=== PATIENT | female | born 1960 | race Caucasian/White ===

== ENCOUNTER 2024-07-14 13:15 | Outpatient (REF) | payer OTHER, SELFPAY ==
--- NOTE | ~2024-07-14 | XR_ITS ---
CLINICAL HISTORY: M54.50 - Low back pain, unspecified 4 views lumbar spine Comparison: None Findings: There is scoliotic curvature No acute fractures or dislocation. There is multiple level degenerative disc and facet change. IMPRESSION: No acute findings. This document has been electronically signed by: Carlos Eduardo Loja MD on 07/16/2024 08:49:25
--- OUTSIDE RECORDS SUMMARY | 2024-07-14 16:00 | XMS_ITS | Clinical Summary ---
Author Organization [facility] [place] [address] Care Team Providers Care Broomcorn Press Feeder Name Role Phone Kathryn Anderson MD Primary [...] Documents on File Type Date Recorded Patient Ged Tutor Expl anation Advance Directives and Livsarahi g Will 08/08/2010 9:49 AM Care Teams Broomcorn Press Feeder Relationship Specialty Start Date End Date Kathryn Anderson MD PCP - General 05/01/10
== END 2024-07-14 13:16 | disposition home or self-care (01) ==
LOC: HO.HOSX 13:15
PROVIDERS: Visit Provider Physician Assistant
DX: M51.16 Intervertebral disc disorders with radiculopathy, lumbar region (principal); M51.17 Intervertebral disc disorders with radiculopathy, lumbosacral region; M54.50 Low back pain, unspecified
CPT/HCPCS: 72110; 99202

== ENCOUNTER 2024-07-14 13:15 | Outpatient (AMB) | payer OTHER, SELFPAY ==
--- NOTE | 2024-07-14 13:23 | A.SPINEOV_ITS ---
Vital Signs 07/14/24 14:09 Height 5 ft 7 in Weight 160 lb BMI 25.1 Intake Visit Reasons: LBP Intake Note: Ms. Mcneil is here today c/o low back pain. Senior It Auditor Required: No Allergies oxycodone Allergy (Mild, Verified 07/14/24 14:10) Unknown Physical Exam Vital Signs: BMI result Body Mass Index 25.1 Assessment & Plan Assessment & Plan (1) Degenerative scoliosis: Code(s): M41.50 - Other secondary scoliosis, site unspecified Category: Medical Plan Dear Dr. Solano Thank you for referring Ayesha to our office today. she is a pleasant 64-year-old female who comes in today with a chief complaint low back pain and shooting pains into her left hip. She reports that this has been ongoing intermittently for the past 20 years. It has worsened over the course of the last 1-2 years. She states that 20 years ago she had an acute event when shoveling snow where she had a sharp pain in her low back leaving her unable to ambulate for 1-2 days. Ever since this event she has had waxing and waning flare-ups of pain. She rates her baseline daily pain as about a 4/10, with the occasional flare-ups all the way to 8/10. she states that transitioning from one position to the next (example: sitting to lying down) exacerbates her pain. She denies any known alleviating factors. She denies any numbness / tingling / burning associated with the pain. She feels that her low back pain is the worst when compared to the shooting pain into her left hip. When describing the shooting pain that goes into her left hip she grabs the left lower side of her back and runs it over the lateral aspect of her hip into the lateral thigh. She is not currently taking any medications for pain, but has tried vysr-nqh-byzkapt medications such as Tylenol and NSAIDs in the past. She has attempted physical therapy in an effort to help mitigate her pain. She has been to the chiropractor and attempted acupuncture in the past. She has had several different cortisone injections with our colleagues at [facility], citing up to 80% relief of pain after some of her injections. Unfortunately her pain seems to always return after a few weeks following her injections. PMH: History of melanoma in 1997 successfully cured, history of tonsillectomy, hysterectomy, left-sided carpal tunnel release, right-sided carpal tunnel syndrome, ADD, eczema, history of bilateral torn meniscus, hyperlipidemia, osteoarthritis. Social hx: Patient does not smoke, reports no substance use. Medications: Clobetasol, Xiidra, Addderall, Buspirone, floucinolone, Halobetsaol. Allergies: Oxycodone, Strattera, Vyvanse. Physical exam: Patient has 5/5 strength in her upper and lower extremities. she ambulates well and rises from seated position without difficulty. She has no significant sensational deficits on exam. Her reflexes are 2+ intact diffusely. (-) Huff's, (-) clonus, (-) bilateral straight leg raise. Imaging review: MRI of the lumbar spine completed at [facility] in May of 2024 shows degenerative dextroscoliosis with the apex at L3. This appear accentuated on the dynamic spine X-rays I obtained during this visit. There is a disc herniation at L4-5 causing effacement of the bilateral exiting nerve roots; right, worse than left. There is also posterior disc bulge at L3-4 causing severe right-sided foraminal stenosis, moderate -severe central canal stenosis, and mild left-sided foraminal stenosis. In addition to this there is moderate central canal and bilateral foraminal stenosis at L2-3, worse on the left. And lastly there is what I would call moderate left sided foraminal stenosis at L1-2. Impression: Ayesha is a pleasant 64-year-old female comes in today with a chief complaint of primarily low back pain with a component of left-sided radicular pain shooting into her left hip/thigh. This has been ongoing for the past 20 years since an initial inciting incident of what sounds like a disc herniation when shoveling snow. Over the course of the last 1-2 years her pain is significantly increased, especially with positional changes. when attempting to rise from seated position or lay down from sitting she feels exacerbations of her pain up to an 8/10. Her MRI shows stenosis of the foramen both on the right and the left in the lumbar spine. Due to her disclosure of increased pain with positional changes I believe the degenerative scoliosis seen may be contributing to her symptoms, however it is difficult to ignore the fact that she has right sided disc herniations that may be contributing to her pain. Therefore, I would like to obtain a record of the patient's injections at [facility] to ascertain which of the injections were able to give her up to 80% relief of her pain. If in fact the L2-3, L3-4 segment did give her pain relief this may point more towards the degenerative scoliosis being the causative agent. I would like to avoid a scoliosis correction in this patient if possible, and feel something like a lumbar decompression may be beneficial for her. I will review her imaging with the attending neurosurgeon Dr. Deleon and call the patient back for follow-up when I have her records Thank you for allowing us to care for your patient. The total time spent with this visit with this patient was 45 minutes reviewing history, physical exam, MRI imaging review, and implementation of treatment plan or further diagnostic testing Iam Deleon MD,PhD [facility] Orders: Orders XR lumbar spine 4V min Today M54.50 - Low back pain, unspecified NE electromyogram (EMG) Today M54.50 - Low back pain, unspecified Coding Level of Care Code New Pt Level 4 (62581) Diagnoses Degenerative scoliosis M41.50
[2024-07-14 14:09] VITALS: BMI 25.1
--- OUTSIDE RECORDS SUMMARY | 2024-07-14 14:38 | XMS_ITS | Clinical Summary ---
Author Organization [facility] [address] Care Team Providers Care Rental Boats Caretaker Name Role Phone Kathryn Anderson MD Primary Care Provider Allergies Active Allergy Reactions Criticality Noted Date Comments Cis Free Text Allergy Hayfever. Oxycodone Oxycodone-Acetaminophen Medications Medication Sig Dispensed Refills Start Date End Date Status CIS Free Text Med - bethamethasone dipropianate cream 02/25/2008 Active traZODone (DESYREL) 50 mg tablet 02/25/2008 Active betamethasone valerate (VALISONE) 0.1 % lotion 02/25/2008 Active fluocinonide-emollient 0.05 % Crea cream 02/25/2008 Active Social History Tobacco Use Types Packs/Day Years Used Date Smoking Tobacco: Never Assessed Sex and Gender Information Value Date Recorded Sex Assigned at Not on file Gender Identity Not on file Sexual Orientation Not on file Plan of Treatment Health Maintenance Due Date Last Done Comments CT Colonography 1961 Colonoscopy 1961 Colorectal Cancer Screening 1961 FIT DNA 1961 FIT 1961 Sigmoidoscopy (10 year) with FIT yearly 1961 Sigmoidoscopy 1961 HIV screen 1979 Hepatitis C Screening 1979 Tetanus/Diphtheria/Pertussis Vaccines (1 - Tdap) 03/15 HPV test 1991 PAP Smear 1991 Breast Cancer Share Decision Needed 2001 Breast Cancer screening 2001 Pneumoccocal Vaccine: 50+ (1 of 1 - PCV) 2011 Zoster vaccine (1 of 2) 2011 Advance Directive 2016 Covid-19 Vaccine (1 - 2023-25 season) 2024 Influenza (Flu) vaccine (1 o f 1 - Influenza standard series) 02/08/2024 Advance Directives Documents on File Type Date Recorded 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
== END 2024-07-14 16:19 | disposition home or self-care (01) ==
PROVIDERS: PCP Family Medicine; Referring Provider Physical Medicine & Rehabilitation; Visit Provider Physician Assistant
DX: M51.361 Other intervertebral disc degeneration, lumbar region with lower extremity pain only (principal); M41.50 Other secondary scoliosis, site unspecified
CPT/HCPCS: 99204

== ENCOUNTER → 2024-07-14 14:55 | Outpatient (BNV) | payer OTHER, SELFPAY | PROVIDERS: Visit Provider Specialist | DX: M54.50 Low back pain, unspecified (principal) | CPT/HCPCS: 72110 ==

== ENCOUNTER 2024-08-04 10:09 | Outpatient (REF) | payer OTHER, SELFPAY ==
--- NOTE | 2024-08-04 10:12 | EMG_ITS ---
Chief complaint: Lower back pain radiating to hips and posterior thigh, bilateral although left worse than right Reason for referral: Evaluate for radiculopathy Referred by: Iam SAGE Procedure done: Bilateral lower extremity NCS/EMG Precautions and/or limitations: None The limb temperature was monitored continuously and remained between 32-36 degrees C during the performance of the NCS. Nerve Conduction Studies Anti Sensory Summary Table ?Stim Site NR Onset (ms) Norm Onset (ms) Peak (ms) Norm Peak (ms) O-P Amp (?V) Norm O-P Amp Site1 Site2 Delta-0 (ms) Dist (cm) Alex (m/s) Norm Alex (m/s) Left Sural Anti Sensory (Lat Mall) Calf ? 3.1 3.8 <4.0 11.8 >5.0 Calf Lat Mall 3.1 14.0 45 Right Sural Anti Sensory (Lat Mall) Calf ? 2.6 3.7 <4.0 21.9 >5.0 Calf Lat Mall 2.6 14.0 54 Motor Summary Table ?Stim Site NR Onset (ms) Norm Onset (ms) O-P Amp (mV) Norm O-P Amp iAmp (mV) Amp (1st) (%) Site1 Site2 Delta-0 (ms) Dist (cm) Alex (m/s) Norm Alex (m/s) Right Peroneal Motor (Ext Dig Brev) Ankle ? 3.8 <4.0 5.2 >2.5 6.2 100.0 Ankle Ext Dig Brev 3.8 0.0 B Fib ? 10.1 4.9 5.3 94.2 B Fib Ankle 6.3 29.0 46 >40 Poplt ? 10.8 5.0 5.5 96.2 Poplt B Fib 0.7 5.0 71 >40 Left Tibial Motor (Abd Tran Brev) Ankle ? 4.0 <5 8.0 >2.5 12.0 100.0 Ankle Abd Tran Brev 4.0 0.0 Knee ? 11.0 6.1 8.5 76.3 Knee Ankle 7.0 36.0 51 >40 Right Tibial Motor (Abd Tran Brev) Ankle ? 3.5 <5 7.5 >2.5 10.4 100.0 Ankle Abd Tran Brev 3.5 0.0 Knee ? 11.3 6.2 8.9 82.7 Knee Ankle 7.8 36.0 46 >40 EMG ?Side Muscle Nerve Root Ins Act Fibs Psw Amp Dur Poly Recrt Int Pat Comment Right AbdHallucis MedPlantar S1-2 Incr 1+ 1+ Incr Incr 0 Nml Complete Right AntTibialis Dp Br Peron L4-5 Nml Nml Nml Nml Nml 0 Reduced Complete Right PostTibialis Tibial L5, S1 Nml Nml Nml Nml Nml 0 Nml Complete Right MedGastroc Tibial S1-2 Nml Nml Nml Nml Nml 0 Nml Complete Right VastusMed Femoral L2-4 Nml Nml Nml Nml Nml 0 Nml Complete Left AbdHallucis MedPlantar S1-2 Incr 1+ 1+ Nml Nml 0 Nml Complete Left AntTibialis Dp Br Peron L4-5 Incr 1+ 1+ Nml Nml 0 Nml Complete Left PostTibialis Tibial L5, S1 Nml Nml Nml Nml Nml 0 Nml Complete Left MedGastroc Tibial S1-2 Nml Nml Nml Nml Nml 0 Nml Complete Left VastusMed Femoral L2-4 Nml Nml Nml Nml Nml 0 Nml Complete Paraspinal EMG ?Side Muscle Nerve Root Ins Act Fibs Psw Comment Right Lumbar Upper Rami Nml Nml Nml Right Lumbar Mid Rami Incr 1+ 1+ Right Lumbar Lower Rami Incr 1+ 1+ Left Lumbar Upper Rami Nml Nml Nml Left Lumbar Mid Rami Nml Nml Nml Left Lumbar Lower Rami Nml Nml Nml FINDINGS: All motor and sensory nerves tested showed normal latencies, amplitudes and conduction velocities. Concentric needle EMG was performed in selected muscles of the bilateral lower extremity and lumbar paraspinals. Study revealed signs of electric abnormalities as shown in the table above. Right AH showed increased insertional activity, PSWs and fibrillations, and increased duration. Right tibialis anterior showed reduced recruitment. Left AH and tibialis anterior showed increased insertional activity, PSWs and fibrillations. Right mid lumbar paraspinals showed increased insertional activity, PSWs and fibrillations. IMPRESSION: 1. This is an abnormal study. 2. There is electrodiagnostic evidence for bilateral mid to lower lumbar radiculopathies, affecting L4/L5/S1 levels. Appearing acute on chronic on right side. 3. There is no electrodiagnostic evidence for peroneal neuropathy, tibial neuropathy. lumbosacral plexopathy, or peripheral neuropathy. Thank you for your kind referral. Mallory Gamez MD, TANYA Board Certified, [place] Board [employer] and Rehabilitation (ABPMR) Board Certified, [place] Board of Electrodiagnostic Medicine (ABEM) CODIN [id number] x 2 MTDD
--- OUTSIDE RECORDS SUMMARY | 2024-08-04 12:15 | XMS_ITS | Clinical Summary ---
Author Organization [place] [address] Care Team Providers Care Teleprinter Installer Name Role Phone Kathryn Anderson MD Primary Care Provider [phone] Allergies Active Allergy Reactions Criticality Noted Date [...] Documents on File Type Date Recorded Patient Manuscript Editor Expl anation Advance Directives and Livsarahi g Will 08/08/2010 9:49 AM Care Teams Teleprinter Installer Relationship Specialty Start Date End Date Kathryn Anderson MD PCP - General 05/01/10
== END 2024-08-04 10:10 | disposition home or self-care (01) ==
LOC: HO.NEURO 10:09
PROVIDERS: PCP Family Medicine; Visit Provider Physician Assistant
DX: M54.50 Low back pain, unspecified (principal)
CPT/HCPCS: 95886; 95909

== ENCOUNTER → 2024-08-04 10:12 | Outpatient (BNV) | payer OTHER, SELFPAY | PROVIDERS: PCP Family Medicine; Visit Provider Physical Medicine & Rehabilitation | DX: M54.16 Radiculopathy, lumbar region (principal) | CPT/HCPCS: 95886; 95909 ==

== ENCOUNTER 2024-08-11 15:05 | Outpatient (AMB) | payer OTHER, SELFPAY ==
--- NOTE | 2024-08-11 15:11 | A.SPINEOV_ITS ---
Intake Visit Reasons: EMG follow up Intake Note: Ms. Mcneil is here today to F/u on the results of her EMG. Special Delivery Carrier Required: No Allergies oxycodone Allergy (Mild, Verified 07/14/24 14:10) Unknown Assessment & Plan Assessment & Plan (1) Degenerative scoliosis: Code(s): M41.50 - Other secondary scoliosis, site unspecified Category: Medical Plan: Dear colleague, On 08/11/2024, I saw for follow-up Ayesha Mcneil. She was previously seen by ALONA Jacobson and for detailed history I refer to his note. In summary, this 64-year-old female is suffering from bilateral pain that starts in the bilateral SI joint/buttock region in wraps around to her groin and sometimes medial part of her left knee. The pain is worse on the left. The symptoms are interfering with her daily activities. She tried all forms of conservative treatments. Imaging reviews a unilateral disc collapse L2-3 with associated spinal stenosis and foraminal stenosis and a retrolisthesis. The L4-5 level shows a unilateral disc collapse on the right side. There is moderate L3-4 stenosis. The clinical symptoms refer to the L2-3 segment. Therefore I offered her to only correct the L2-3 segment with an oblique lumbar interbody fusion and to leave the remainder levels alone. I do not think that a simple laminotomy would be beneficial due to the pre-existing scoliosis. We had an extensive discussion about the procedure and expected postoperative course on the hand of the films and a model. I answered all her questions in the patient is leaning towards surgical treatment. She will return to my office when she has decided if she wants to do it and when. She will then return to my office to finalize the plan. I spent 40 minutes in his consult answering questions and discussing plan of care. Thank you for allowing me take care of your patient. Jean Deleon MD, PhD Spine Fellowship Trained Neurosurgeon Director, [facility] Coding Level of Care Code Est Pt Level 5 (28334) Diagnoses Degenerative scoliosis M41.50
--- OUTSIDE RECORDS SUMMARY | 2024-08-11 18:16 | XMS_ITS | Clinical Summary ---
Author Organization [facility] [place] [place] [address] Care Team Providers Care Cook At School Name Role Phone Kathryn Anderson MD Primary [...] Documents on File Type Date Recorded Patient Human Resource Adviser Expl anation Advance Directives and Livsarahi g Will 08/08/2010 9:49 AM Care Teams Cook At School Relationship Specialty Start Date End Date Kathryn Anderson MD PCP - General 05/01/10
== END 2024-08-11 16:57 | disposition home or self-care (01) ==
LOC: HO.HNS 15:05
PROVIDERS: PCP Family Medicine; Visit Provider Neurological Surgery
DX: M51.26 Other intervertebral disc displacement, lumbar region (principal); M41.50 Other secondary scoliosis, site unspecified
CPT/HCPCS: 99215

== ENCOUNTER → 2024-08-11 15:05 | Outpatient (BNVA) | payer OTHER, SELFPAY | PROVIDERS: PCP Family Medicine; Visit Provider Neurological Surgery | DX: M41.50 Other secondary scoliosis, site unspecified (principal) | CPT/HCPCS: 99212 ==